=== PATIENT | male | born 1965 | race Caucasian/White ===

== ENCOUNTER 2017-12-06 19:14 | Emergency (ER) | payer OTHER ==
[~2017-12-06 19:14] MED LIST: ISOVUE-370 76%-LOCM 1 ML ONE
[2017-12-06 20:56] LABS: #Basophils 0.1 thou/uL (0.0-0.2); #Eosinphils 0.2 thou/uL (0.0-0.7); #Lymphocytes 3.1 thou/uL (1.20-3.40); #Monocytes 0.6 thou/uL (0.11-0.59); #Neutrophils 6.9 thou/uL (1.40-6.50); %Basophils 0.7 % (0.0-1.0); %Eosinophils 1.8 % (0.0-10.0); %Lymphocytes 28.1 % (21.0-51.0); %Monocytes 5.7 % (0.0-10.0); %Neutrophils 63.7 % (42.0-75.0); Hemoglobin 15.7 g/dL (14.0-18.0); Mean Corpuscular HGB CONC 34.6 g/dL (32.0-36.0); Mean Corpuscular Hemoglobin 30.2 pg (27.0-31.0); Mean Corpuscular Volume 87.5 fl (80.0-94.0); Mean Platelet Volume 8.4 fL (7.4-10.4); Platelet Count 257 thou/uL (130-400); RBC Distribution Width 12.6 % (11.5-14.5); White Blood Cell (WBC) Count 10.8 thou/uL (4.8-10.8)
[2017-12-06 20:59] LABS: Bilirubin Negative (Negative); Blood, Urine Negative (Negative); Clarity CLEAR (Clear); Glucose, Urine (Dipstick) Negative (Negative); Leukocyte Negative (Negative); Nitrite Negative (Negative); Protein, Urine (Dipstick) Negative (Neg-Trace); Specific Gravity, Urine 1.027 (1.002-1.036); Urobilinogen 0.2 mg/dL (0.2-1.0)
--- NOTE | 2017-12-06 21:39 | CT ---
CT OF ABDOMEN AND PELVIS 12/06/17 COMPARISON: None. HISTORY: Intermittent abdominal pain. TECHNIQUE: Serial axial CT imaging at 5 mm intervals from lung bases through the pubic symphysis with IV contra st. Coronal reformatted imaging obtained. FINDINGS: The imaged lung bases are unremarkable. There is no free intraperitoneal air or fluid. The liver, gallbladder, spleen, pancreas, and adrenal glands are grossly unremarkable. There are multiple subcentimeter stones within the left kidney measuring up to 5 mm. There are mariusz us stones within the right kidney measuring up to 5 mm. There is no evidence for obstructive uropathy on either side. Limited assessment of the bowel without oral contrast demonstrates mild sigmoid diverticulosis without evidence for diverticulitis. Appendix is normal. Vascular structures appear patent. No lymphadenopathy. No acute osseous abnormality. IMPRESSION: Multiple nonobstructing bilateral renal calculi. No acute findings. POS: [facility]
[2017-12-06 21:55] LABS: Albumin 3.6 g/dL (3.5-5.0)
[2017-12-06 21:56] LABS: Chloride 104 mmol/L (98-107); Potassium 3.5 mmol/L (3.5-5.1); Sodium 136 mmol/L (136-145)
[2017-12-06 21:57] LABS: Calcium 8.4 mg/dL (7.8-10.44); Glucose 83 mg/dL (70-105)
[2017-12-06 21:58] LABS: Globulin 2.4 g/dL (2.4-3.5)
[2017-12-06 21:59] LABS: Anion Gap 11 mmol/L (10-20); Carbon Dioxide 25 mmol/L (22-29)
[2017-12-06 22:00] LABS: Alkaline Phosphatase 82 U/L (40-150)
[2017-12-06 22:01] LABS: Calc. Creatinine Clearance 0 mL/min (70-130); Estimated GFR-MDRD Greater than 90
[2017-12-06 22:02] LABS: BUN (Urea Nitrogen) 22 mg/dL (8.9-20.6)
[2017-12-06 22:03] LABS: ALT (SGPT) 16 U/L (8-55); AST (SGOT) 15 U/L (5-34)
== END 2017-12-06 22:27 | disposition home or self-care (01) ==
LOC: ERS 19:14
DX: R10.32 Left lower quadrant pain (principal); Z79.899 Other long term (current) drug therapy
CPT/HCPCS: 36415; 74177; 80053; 81003; 85025; 96360

== ENCOUNTER 2024-06-24 08:02 | Outpatient (CLI) | payer BC | END 2024-06-24 08:03 | disposition home or self-care (01) | LOC: SCSMRI 08:02 | PROVIDERS: ATTEND Orthopaedic Surgery | DX: M23.91 Unspecified internal derangement of right knee (principal); S83.241A Other tear of medial meniscus, current injury, right knee, initial encounter; M22.2X1 Patellofemoral disorders, right knee; M25.461 Effusion, right knee; R60.0 Localized edema ==

== ENCOUNTER 2024-07-23 08:48 | Outpatient (CLI) | payer BC ==
[2024-07-23 09:57] LABS: #Basophils 0.05 10x3/uL (0.0-0.2); %Basophils 0.8 % (0.0-1.0); %Eosinophils 2.9 % (0.0-10.0); %Lymphocytes 39.9 % (21.0-51.0); %Monocytes 7.3 % (0.0-10.0); %Neutrophils 48.6 % (42.0-75.0); Hematocrit 47.4 % (42.0-52.0); Mean Corpuscular HGB CONC 33.8 g/dL (32.0-36.0); Mean Corpuscular Hemoglobin 29.5 pg (27.0-31.0); Mean Corpuscular Volume 87.5 fL (78.0-98.0); Mean Platelet Volume 10.2 fL (7.4-10.4); Platelet Count 264 10x3/uL (130-400); RBC Distribution Width 13.5 % (11.5-14.5); Red Blood Cell (RBC) Count 5.42 mill/uL (4.70-6.10)
[2024-07-23 10:13] LABS: Anion Gap 12 mmol/L (10-20); BUN (Urea Nitrogen) 20 mg/dL (8.4-25.7); Calc. Creatinine Clearance 0 mL/min (70-130); Calcium 9.1 mg/dL (7.8-10.44); Carbon Dioxide 22 mmol/L (22-29); Chloride 110 mmol/L (98-107); Estimated GFR 102; Glucose 95 mg/dL (70-105); Potassium 3.9 mmol/L (3.5-5.1); Sodium 140 mmol/L (136-145)
== END 2024-07-23 08:49 | disposition home or self-care (01) ==
LOC: LABBT 08:48
PROVIDERS: ATTEND Orthopaedic Surgery
DX: Z01.818 Encounter for other preprocedural examination (principal); S83.241A Other tear of medial meniscus, current injury, right knee, initial encounter
CPT/HCPCS: 80048; 85025; 93005; 93010

== ENCOUNTER 2024-07-26 11:01 | Day surgery (SDC) | payer BC ==
[2024-07-23 09:16] VITALS: BMI 42.5
[2024-07-26] MEDS ORDERED: fentaNYL 50 mcg/mL 1 mL Vial ONE (12:02)
[2024-07-26] MEDS ORDERED: Lidocaine 1% PF 5 ML VIAL ONE (12:02)
[2024-07-26] MEDS ORDERED: PROPOFOL 20 ML ONE ×2 (12:02→12:26)
[2024-07-26] MEDS ORDERED: Lidocaine 2% PF 5 ML VIAL ONE (12:25)
[2024-07-26] MEDS ORDERED: Bupivacaine PF 0.5% 30 ML VIAL ONE (12:26)
[2024-07-26] MEDS ORDERED: Bupivacaine HCl 0.5%/Epinephrine 1:200,000/PF 30 ml Vial ONE (12:40)
[2024-07-26] MEDS ORDERED: CEFAZOLIN 2 GM VIAL ONE (12:47)
[2024-07-26] MEDS ORDERED: Esmolol 100 MG/10 ML VIAL ONE (13:12)
[2024-07-26] MEDS ORDERED: Ondansetron PF 4 MG/2 ML Vial ONE (13:16)
[2024-07-26] MEDS ORDERED: Dexamethasone 4 mg/ml Vial ONE (13:16)
[2024-07-26] MEDS ORDERED: PHENYLEPHRINE-NS 100 MCG/ML 10 ML SYRINGE ONE (13:24)
== END 2024-07-26 16:05 | disposition home or self-care (01) ==
LOC: SDC 11:01
PROVIDERS: ATTEND Orthopaedic Surgery
PROC: 0SBC4ZZ Excision of Right Knee Joint, Percutaneous Endoscopic Approach (ICD-10-PCS; principal; 2024-07-26)
PROC: 3E0T3BZ Introduction of Anesthetic Agent into Peripheral Nerves and Plexi, Percutaneous Approach (ICD-10-PCS; principal; 2024-07-26)
DX: S83.241A Other tear of medial meniscus, current injury, right knee, initial encounter (principal); S43.431A Superior glenoid labrum lesion of right shoulder, initial encounter; M23.91 Unspecified internal derangement of right knee; M17.0 Bilateral primary osteoarthritis of knee; G47.30 Sleep apnea, unspecified; I48.91 Unspecified atrial fibrillation; Z85.828 Personal history of other malignant neoplasm of skin; Z88.2 Allergy status to sulfonamides; Z91.09 Other allergy status, other than to drugs and biological substances; Z79.899 Other long term (current) drug therapy; X58.XXXA Exposure to other specified factors, initial encounter
CPT/HCPCS: J0665; J1100; J2405; J2704; J3010